=== PATIENT | male | born 1985 | race Caucasian/White ===

== ENCOUNTER 2021-01-13 01:11 | Observation (INO) | payer OTHER ==
[~2021-01-13] VITALS: Ht 188 cm; Wt 172.8 kg
[2021-01-13 02:11] LABS: HEMOGLOBIN 16.3 gm/dl (14.0-17.5); RED BLOOD COUNT 5.74 M/UL (4.20-5.50); WHITE BLOOD COUNT 13.4 K/UL (4.5-11.0)
[2021-01-13 02:26] LABS: BUN/CREATININE RATIO 26 (0-10)
[2021-01-13] MEDS ORDERED: DIOVAN80 MG PO (07:45)
[2021-01-13] MEDS ORDERED: ASPIRIN CHEWABL81 MG PO ×2 (07:45→07:46)
[2021-01-13] MEDS ORDERED: VALSARTAN80 MG PO (12:09)
[2021-01-13] MEDS ORDERED: CARVEDILOL3.125 MG PO (12:09)
[2021-01-13] MEDS ORDERED: HYDROCHLOROTHIA25 MG PO (12:09)
== END 2021-01-13 14:45 | disposition home or self-care (01) ==
LOC: ER1 01:11 → M/S 03:04 → CDU 03:04 → M/S 03:04
PROVIDERS: Emergency Medicine; ADMIT Internal Medicine
DX: R07.89 Other chest pain (principal); R06.09 Other forms of dyspnea; I10 Essential (primary) hypertension; E66.01 Morbid (severe) obesity due to excess calories; Z68.42 Body mass index [BMI] 45.0-49.9, adult; Z79.82 Long term (current) use of aspirin; Z79.899 Other long term (current) drug therapy; Z20.822 Contact with and (suspected) exposure to COVID-19
CPT/HCPCS: ECHO; 36415; 71045; 80053; 82550; 82553; 83036; 83605; 83874; 83880; 84439; 84443; 84484; 84550; 85025; 86140; 93005; 93306; 99285; G0378; U0002

== ENCOUNTER 2021-01-26 16:37 | Emergency (ER) | payer OTHER ==
[~2021-01-26 16:37] MED LIST: ASPIRIN CHEWABL81 MG PO; CARVEDILOL3.125 MG PO; DIOVAN80 MG PO; HYDROCHLOROTHIA25 MG PO; VALSARTAN80 MG PO
[2021-01-26 18:16] LABS: HEMOGLOBIN 16.5 gm/dl (14.0-17.5); RED BLOOD COUNT 5.8 M/UL (4.20-5.50)
[2021-01-26 18:51] LABS: BUN/CREATININE RATIO 21 (0-10)
[2021-01-26 20:58] LABS: BUN/CREATININE RATIO 20 (0-10)
[2021-01-27] MEDS ORDERED: HYDROCHLOROTHIA25 MG PO (10:32)
[2021-01-27] MEDS ORDERED: CARVEDILOL3.125 MG PO (10:32)
[2021-01-27] MEDS ORDERED: NITROGLYCERIN0.4 MG SL (10:33)
[2021-01-28] MEDS ORDERED: CARVEDILOL3.125 MG PO (16:28)
== END 2021-01-26 21:31 | disposition home or self-care (01) ==
LOC: ER1 16:37
PROVIDERS: Family Medicine; Physician Assistant Medical
DX: R07.9 Chest pain, unspecified (principal); M54.9 Dorsalgia, unspecified
CPT/HCPCS: 71045; 80053; 80061; 82550; 82553; 83874; 84484; 85025; 85379; 93005; 99285

== ENCOUNTER 2021-01-27 04:36 | Observation (INO) | payer OTHER ==
[~2021-01-27] VITALS: Ht 188 cm; Wt 172.4 kg
[2021-01-27 05:35] LABS: BUN/CREATININE RATIO 22 (0-10)
[2021-01-27 08:47] LABS: HEMOGLOBIN 14.8 gm/dl (14.0-17.5); RED BLOOD COUNT 5.24 M/UL (4.20-5.50); WHITE BLOOD COUNT 13.2 K/UL (4.5-11.0)
[2021-01-27] MEDS ORDERED: HYDROCHLOROTHIA25 MG PO (10:32)
[2021-01-27] MEDS ORDERED: CARVEDILOL3.125 MG PO (10:32)
[2021-01-27] MEDS ORDERED: NITROGLYCERIN0.4 MG SL (10:33)
[2021-01-28 02:39] LABS: HEMOGLOBIN 14.7 gm/dl (14.0-17.5); RED BLOOD COUNT 5.45 M/UL (4.20-5.50); WHITE BLOOD COUNT 10.6 K/UL (4.5-11.0)
[2021-01-28 03:00] LABS: BUN/CREATININE RATIO 19 (0-10)
[2021-01-28] MEDS ORDERED: CARVEDILOL3.125 MG PO (16:28)
== END 2021-01-28 18:19 | disposition home or self-care (01) ==
LOC: ER1 04:36 → MED SURG 4 06:00 → CDU 06:00 → MED SURG 4 06:00
PROVIDERS: Family Medicine; ADMIT Internal Medicine
DX: R07.89 Other chest pain (principal); I10 Essential (primary) hypertension; R06.00 Dyspnea, unspecified; F10.11 Alcohol abuse, in remission; F41.9 Anxiety disorder, unspecified; E66.01 Morbid (severe) obesity due to excess calories; Z68.42 Body mass index [BMI] 45.0-49.9, adult; Z20.822 Contact with and (suspected) exposure to COVID-19; Z87.891 Personal history of nicotine dependence; Z79.82 Long term (current) use of aspirin; Z79.899 Other long term (current) drug therapy
CPT/HCPCS: 36415; 78452; 80048; 80053; 80061; 80307; 81001; 82550; 82553; 83735; 83874; 84484; 85025; 85027; 85379; 85652; 86140; 93005; 96372; 99285; A9502; G0378; J1650; J7040; J7120; U0002

== ENCOUNTER 2021-01-29 14:03 | Emergency (ER) | payer OTHER ==
[~2021-01-29 14:03] MED LIST changes: +NITROGLYCERIN0.4 MG SL
[2021-01-29 15:29] LABS: RED BLOOD COUNT 5.34 M/UL (4.20-5.50); WHITE BLOOD COUNT 10.9 K/UL (4.5-11.0)
[2021-01-29 16:40] LABS: BUN/CREATININE RATIO 21 (0-10)
== END 2021-01-29 17:28 | disposition home or self-care (01) ==
LOC: ER1 14:03
PROVIDERS: Family Medicine
DX: I10 Essential (primary) hypertension (principal); R06.00 Dyspnea, unspecified; E66.01 Morbid (severe) obesity due to excess calories
CPT/HCPCS: 70450; 71045; 80053; 82550; 82553; 83874; 84484; 85025; 93005; 99285